=== PATIENT | male | born 1960 | race Hispanic/Latino ===

== ENCOUNTER 2019-05-20 14:57 | Outpatient (CLI) | payer OTHER ==
--- NOTE | 2019-05-20 16:38 | Ultrasound Report ---
Scrotal ultrasound INDICATION: Left scrotal pain, status post 2 2 months hernia surgery, heavy lifting last month No testicular masses are seen. Good and symmetric blood flow is seen internally in both testicles. Th e right testicle has a mildly heterogenous appearance. Right testicle measures 5.2 cm in length and 1 .9 cm in thickness compared to the left testicle 6.0 cm in length and 2.2 cm in thickness. No hydroce les are seen. No significant epididymal abnormalities are noted. No definite varicocele is seen. Ther e is perhaps mild diffuse thickening of the tissues lateral to the left testicle without discrete mas s or fluid collection. IMPRESSION: 1. No definite acute abnormalities seen. Mild thickening in the left scrotum lateral to the testicle is of unclear etiology and may just represent mild edema in this area. Possibly this could relate to recent surgery. 2. Mild in homogeneity of the right testicle without defined mass. No enlargement or hypervascularity is seen. In homogeneity can be seen with orchitis though often would be accompanied by enlargement a nd hypervascularity. Lymphoma might show infiltrative process but would typically show enlargement. T his is not on the site of patient complaint is well with no history of right testicular pain accordin g to the technologist. Probably this is not a significant finding but I would suggest clinical correl ation and follow-up. Signer Name: Loy Bravo MD Signed: 05/20/2019 4:33 PM Workstation Name: [id number]
== END 2019-05-20 14:58 | disposition home or self-care (01) ==
LOC: US 14:57
PROVIDERS: ATTEND Urology
DX: N50.812 Left testicular pain (principal)
CPT/HCPCS: 93975